=== PATIENT | male | born 1965 | race Caucasian/White ===

== ENCOUNTER 2019-05-09 07:17 | Day surgery (SDC) | payer OTHER ==
[2019-05-09] VITALS (8 sets, daily range): BP systolic 102–122; BP diastolic 62–74
[~2019-05-09] VITALS: Ht 177.8 cm; Wt 81.6 kg
--- NOTE | 2019-05-09 06:45 | Anethesia Preoperative Eval ---
Anesthesia Pre-op PMH/ROS General Date of Evaluation: May 09, 2019 Anesthesiologist: Cristi ASA Score: ASA 2 Mallampati Score Class I : Soft palate, uvula, fauces, pillars visible Class II: Soft palate, uvula, fauces visible Class III: Soft palate, base of uvula visible Class IV: Only hard plate visible Mallampati Classification: Class II Surgeon: Miguel Diagnosis: Anal warts Surgical Procedure: Excision anal condyloma Anesthesia History: none Family History: no anesthesia problems Allergies: Coded Allergies: No Known Allergies (Unverified , 05/09/19) Medications: see eMAR Patient NPO?: Yes NPO Date: May 08, 2019 NPO Time: 22:00 Past Medical History Cardiovascular: Denies: HTN, CAD, [place], valve dz, arrhythmia, other Pulmonary: Denies: asthma, COPD, GER[place], other Gastrointestinal/Genitourinary: Reports: GERD; Denies: CRI, ESRD, other Neurologic/Psychiatric: Reports: depression/anxiety; Denies: dementia, CVA, TIA, other HEENT: Denies: cataract (L), cataract (R), glaucoma, [place] (L), [place] (R), other Hematology/Immune: Denies: anemia, DVT, bleeding disorder, other Musculoskeletal/Integumentary: Denies: OA, RA, DJD, DDD, edema, other PSxH Narrative: septoplasty, bilateral knee sx, right achilles, left shoulder arthroscopy Anesthesia Pre-op Phys. Exam Physician Exam see chart Constitutional: NAD Cardiovascular: RRR Respiratory: CTA Airway Exam Mallampati Score: Class II MO: full ROM: full Anesthesia Pre-op A/P Labs see chart Studies Pre-op Studies: EKG - sr Risk Assessment & Plan Assessment: ASA II Plan: MAC Status Change Before Surgery: No Pre-Antibiotics Drug: Cefoxitin 2g Given Within 1 Hr of Incision: Yes Cynthia Duncan MD May 09, 2019 06:45
[2019-05-09] MEDS ORDERED: PRISTIQ ER50 MG PO (07:53)
[2019-05-09] MEDS ORDERED: QUETIAPINE FUMA25 MG ORAL (07:53)
[2019-05-09] MEDS ORDERED: claritin PO (07:54)
[2019-05-09] MEDS ORDERED: PROPECIA1 MG PO (07:55)
--- NOTE | 2019-05-09 08:50 | Pre-Procedure Note/Attestation ---
Pre-Procedure Note/Attestation Complete Prior to Procedure Planned Procedure: not applicable Procedure Narrative: Excision and fulguration of anal condyloma Indications for Procedure Pre-Operative Diagnosis: anal condyloma Attestation I attest that I discussed the nature of the procedure; its benefits; risks and complications; and alternatives (and the risks and benefits of such alternatives ), prior to the procedure, with the patient (or the patient's legal arborist representative). I attest that, if there was a reasonable possibility of needing a blood transfusion, the patient (or the patient's legal arborist representative) was given the [facility] standardized written summary, pursuant to the Danilo Alpaugh Blood Safety Act ([place] Health and Safety Code # 1645, as amended). I attest that I re-evaluated the patient just prior to the surgery and that there has been no change in the patient's H&P, except as documented below: Lashawn Rivera MD May 09, 2019 08:50
[2019-05-09] MEDS ORDERED: Lidocaine 1% MPF 10mg/ml 5ml ONE (08:58)
[2019-05-09] MEDS ORDERED: Propofol 200mg/20ml IV ONE (08:58)
[2019-05-09] MEDS ORDERED: fentaNYL 100 mcg/2 mL IV ONE (08:58)
[2019-05-09] MEDS ORDERED: Midazolam 2mg/2ml Inj ONE (08:59)
[2019-05-09] MEDS ORDERED: cefOXitin 2gm Inj ONE (09:00)
[2019-05-09] MEDS ORDERED: EPINEPHrine 1mg/1ml Amp ONE (09:10)
[2019-05-09] MEDS ORDERED: Dexamethasone 4mg/ml vial ONE (09:10)
[2019-05-09] MEDS ORDERED: Ropivacaine 5mg/ml Vial 30ml INJ ONE (09:11)
[2019-05-09] MEDS ORDERED: LR 1000ml 1,000 ML IVLG SCH (09:11)
[2019-05-09] MEDS ORDERED: Ketorolac 30mg Inj IV PRN (09:15)
[2019-05-09] MEDS ORDERED: Metoclopramide 10mg/2ml Inj IVP PRN (09:15)
[2019-05-09] MEDS ORDERED: DiphenhydrAMINE 50mg/ml Inj IVP PRN (09:15)
[2019-05-09] MEDS ORDERED: Hydromorphone 0.5mg/0.5ml inj IVP PRN (09:15)
[2019-05-09] MEDS ORDERED: Midazolam 2mg/2ml Inj IVP PRN (09:15)
[2019-05-09] MEDS ORDERED: LORazepam Inj 2mg/ml 1ml IV PRN (09:15)
[2019-05-09] MEDS ORDERED: fentaNYL 100 mcg/2 mL IV PRN (09:15)
[2019-05-09] MEDS ORDERED: NS Irrig 1000ml ONE (09:30)
[2019-05-09] MEDS ORDERED: Sterile Water Irrig 1000ml IRRIG ONE (09:30)
[2019-05-09] MEDS ORDERED: LR 1000ml ONE (09:30)
[2019-05-09] MEDS ORDERED: Acetic Acid 3% Solution 15ml TOPIC ONE (09:45)
--- NOTE | 2019-05-09 10:08 | Immediate Post-Op Evaluation ---
Immediate Post-Op Evalulation Immediate Post-Op Evalulation Procedure: Excision fulguration anal condyloma Date of Evaluation: May 09, 2019 Time of Evaluation: 10:09 IV Fluids: 400 Blood Products: 0 Estimated Blood Loss: min Urinary Output: 0 Blood Pressure Systolic: 108 Blood Pressure Diastolic: 63 Pulse Rate: 73 Respiratory Rate: 16 O2 Sat by Pulse Oximetry: 100 Temperature (Fahrenheit): 97 Pain Score (1-10): 0 Nausea: No Vomiting: No Complications 0 Patient Status: awake, reacts, patent, none Hydration Status: adequate Drug: cefoxitin 2g Given Within 1 Hr of Incision: Yes Cynthia Duncan MD May 09, 2019 10:08
--- NOTE | 2019-05-09 10:09 | 48 Hour Post Anesthesia Eval ---
Post Anesthesia Evaluation Procedure: Excision fulguration anal condyloma Date of Evaluation: May 09, 2019 Airway: patent Nausea: No Vomiting: No Pain Intensity: 0 Hydration Status: adequate Cardiopulmonary Status: at baseline Mental Status/LOC: patient returned to baseline Post-Anesthesia Complications: 0 Follow-up care needed: ready to discharge Cynthia Duncan MD May 09, 2019 10:09
--- NOTE | 2019-05-09 10:11 | Brief Operative Note ---
Immediate Post Operative Note Operative Note Pre-op Diagnosis: anal condyloma Procedure: Excision and fulguration of anal condyloma Post-op Diagnosis: anal condyloma Findings: consistent w/pre-op dx studies Surgeon: Lashawn Rivera MD Anesthesiologist: Cynthia Colin MD Anesthesia: moderate sedation Specimen: yes Complications: none Condition: stable Fluids: see anesthesia record Implant(s) used?: No Lashawn Rivera MD May 09, 2019 10:11
--- NOTE | 2019-05-09 15:15 | Operative Note - Dictated ---
DATE OF OPERATION: 05/09/2019 PREOPERATIVE DIAGNOSIS: Anal condyloma. POSTOPERATIVE DIAGNOSIS: Anal condyloma. PROCEDURE: Excision and fulguration of anal condyloma. SURGEON: Lashawn Rivera M.D. ANESTHESIOLOGIST: Cynthia Colin M.D. ANESTHESIA: Propofol sedation with local anesthetic. INDICATION FOR PROCEDURE: The patient is a 54-year-old male, who was sent to my office by his physician, Dr. Javier Curran for colorectal surgical evaluation of anal condylomata. The patient is on [employer] for PrEP and was noted on physical exam to have internal condyloma. The patient had a colonoscopy done by me as well on 08/23/2017, which showed 3 polyps. In light of the patient's findings, it was determined to proceed with excision and fulguration of anal condyloma under sedation. DESCRIPTION OF PROCEDURE: Upon consent of the patient, the patient was brought to the operating room, and placed in the prone yan-knife position on the operating table. Once adequate sedation was started with propofol drip, the patient's buttocks were prepped and draped in usual surgical fashion. 35 mL of 0.5% ropivacaine with epinephrine mixed with 6 mg of dexamethasone was used as a perianal and pudendal block. A Hill-Flores retractor was placed into the anal canal. There was noted to be moderate size internal hemorrhoids circumferentially. There was noted to be internal condyloma that were scattered and moderate size in the internal anal canal. These were excised and sent off the field as specimens. The anal canal was stained with 3% acetic acid. All areas stained white were electrofulgurated as well. The anal canal was then irrigated and hemostasis confirmed. A sterile dry dressing was used as an outer dressing. Sponge, needle, and instrument counts were correct at the end of the case. The patient was awake from anesthesia and brought to postanesthesia recovery in stable condition. ESTIMATED BLOOD LOSS: Less than 5 mL. DRAINS: None. SPECIMEN: Anal condyloma. COMPLICATIONS: None. Lashawn Rivera M.D. DR: PATTIE JOB#: [id number] CC: Lashawn Rivera M.D.; Fax#: [phone] Javier Curran M.D.
== END 2019-05-09 11:05 | disposition home or self-care (01) ==
LOC: SUR 07:17
DX: A63.0 Anogenital (venereal) warts (principal); K21.9 Gastro-esophageal reflux disease without esophagitis; F41.9 Anxiety disorder, unspecified; F32.9 Major depressive disorder, single episode, unspecified
CPT/HCPCS: 46910; J0171; J0694; J1100; J2250; J2704; J2795; J3010; J7120; 94003; 94150